=== PATIENT | female | born 1985 | race Hispanic/Latino ===

== ENCOUNTER 2017-03-15 02:58 | Emergency (ER) | payer OTHER, BC ==
[2017-03-15] MEDS ORDERED: Oxycodone/Acetaminophen 5/325 mg Tab PO STA (03:31)
[2017-03-15] MEDS ORDERED: Oxycodone/Acetaminophen 5/325 mg Tab ONE (04:01)
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
[2017-03-15 05:45] VITALS: BP 125/72; PULSE 93; RESP 16; TEMP 98.4
[2017-03-15 05:53] VITALS: O2SAT 100
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
--- NOTE | 2017-03-16 11:12 | CARD ---
APPROVED REPORT EKG Measurement Heart [id number] CO [id number] [id number] <Conclusion> Normal sinus rhythm Normal ECG
== END 2017-03-15 08:45 | disposition home or self-care (01) ==
LOC: C.ER 02:58
DX: S20.219A Contusion of unspecified front wall of thorax, initial encounter (principal); V49.9XXA Car occupant (driver) (passenger) injured in unspecified traffic accident, initial encounter
CPT/HCPCS: 71020; 93005; 96372; 99285; J2270